=== PATIENT | male | born 1965 | race Two or more races ===

== ENCOUNTER 2017-10-12 05:07 | Inpatient (IN) | payer OTHER ==
[~2017-10-12] VITALS: Ht 165.1 cm; Wt 96.6 kg
[2017-10-12] MEDS ORDERED: CELECOXIB 100 MG CAPSULE ONE (05:28)
[2017-10-12] MEDS ORDERED: oxyCODONE HCL SR 10MG TAB.SR.12H PO ONE (05:28)
[2017-10-12] MEDS ORDERED: ACETAMINOPHEN 325 MG TABLET ONE (05:28)
[2017-10-12] MEDS ORDERED: CEFAZOLIN SODIUM/DEXTROSE,ISO 50 ML IV ONE (05:29)
[2017-10-12] MEDS ORDERED: MORPHINE SULFATE/PF 10 MG/10ML (1MG/ML) AMPUL ONE (08:32)
[2017-10-12] MEDS ORDERED: BUPIVACAINE 0.75% DEXT-PF 2 ML AMPUL ONE (08:32)
[2017-10-12] MEDS ORDERED: MIDAZOLAM HCL 2 MG/2ML VIAL ONE (08:33)
[2017-10-12] MEDS ORDERED: FENTANYL PF 100MCG/2ML AMPUL ONE ×2 (08:33→11:15)
[2017-10-12] MEDS ORDERED: KETOROLAC TROMETHAMINE INJ 30 MG/ML VIAL ONE (08:50)
[2017-10-12] MEDS ORDERED: BUPIVACAINE 0.25% 75 MG/30 ML VIAL ONE (08:50)
[2017-10-12] MEDS ORDERED: BACITRACIN 50000 UNITS/VIAL ONE (08:51)
[2017-10-12] MEDS ORDERED: TRANEXAMIC ACID 3,000 MG in SODIUM CHLORIDE IRRIG SOLUTION 70 ML IR ONE (09:30)
[2017-10-12 12:00] VITALS: BP 125/86
--- NOTE | 2017-10-12 12:00 | NUR ---
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 Donis. Patient is on 02 @2lpm via NC and tolerated well. Awake and alert, verbally responsive and able to make needs known. Foster in placed attached to drainage bag, with no sediment noted, in the bag and tubing. Vital signs checked and recorded. skin intact, left knee dressing intact, MD to do the first dressing after 48 hrs after procedure. Son at bedside. Informed Dr. Wagner about the admission and made aware. Kept patient clean and comfortable in bed, call light with in patient reach, will continue to monitor accordingly.
[2017-10-12] MEDS ORDERED: ZOLPIDEM TARTRATE 5 MG TABLET PO PRN (12:30)
[2017-10-12] MEDS ORDERED: Z GUARD REMEDY 2 OZ OINT TP PRN (12:30)
[2017-10-12] MEDS ORDERED: ACETAMINOPHEN 325 MG TABLET PO PRN (12:30)
[2017-10-12] MEDS ORDERED: MAG HYDROX/AL HYDROX/SIMETH 30 ML UDC PO PRN ×2 (12:30→13:30)
[2017-10-12] MEDS ORDERED: MAGNESIUM HYDROXIDE 30 ML UDC PO PRN ×2 (12:30→13:30)
[2017-10-12] MEDS ORDERED: ONDANSETRON HCL/PF 4 MG/2 ML VIAL IVP PRN ×2 (12:30→13:30)
[2017-10-12] MEDS ORDERED: ENOXAPARIN SODIUM 40 MG/0.4 ML DISP.SYRIN SQ SCH (12:30)
[2017-10-12] MEDS ORDERED: HYDROCODONE/APAP 5/325MG 1 EACH TABLET PO PRN (12:30)
[2017-10-12] MEDS ORDERED: SENOKOT 8.6 MG TABLET PO PRN (13:13)
[2017-10-12] MEDS ORDERED: TYLENOL 650 MG TABLET PO PRN (13:13)
[2017-10-12] MEDS ORDERED: AMBIEN 5 MG TABLET PO PRN (13:13)
[2017-10-12] MEDS ORDERED: diphenhydrAMINE HCL 25 MG CAPSULE PO PRN (13:21)
[2017-10-12] MEDS: HYDROCODONE/APAP 10/325MG 1 EA TABLET PO PRN ×3 (13:29→22:04)
[2017-10-12] MEDS ORDERED: BISACODYL SUPP (10 MG) 10 MG/SUPP.RECT SUPP.RECT RC PRN (13:30)
[2017-10-12] MEDS ORDERED: NALOXONE HCL 0.4 MG/ML AMPUL IV PRN ×2 (13:30)
[2017-10-12] MEDS ORDERED: diphenhydrAMINE HCL 50 MG/ML VIAL IV PRN (13:30)
[2017-10-12] MEDS ORDERED: CLONIDINE HCL 0.1 MG TABLET PO PRN (13:30)
[2017-10-12] MEDS ORDERED: MENTHOL/CETYLPYRD (CEPACOL) 1 LOZ LOZENGE MM PRN (13:30)
[2017-10-12] MEDS: IV D5/0.45 NACL 1,000 ML IV PRN (13:37)
[2017-10-12] MEDS: MORPHINE SULFATE INJ 4 MG/ML DISP.SYRIN IM PRN (15:02)
[2017-10-12] MEDS: ANCEF 1 G in IV D5W 50 ML IV SCH (16:50)
[2017-10-12] MEDS: DOCUSATE SODIUM 100 MG CAPSULE PO SCH (16:50)
[2017-10-12] MEDS: ASPIRIN 325 MG TABLET PO SCH (16:50)
--- NOTE | 2017-10-12 19:05 | NUR ---
ms rn closing notes All needs provided, attended, and anticipated, patient is in stable condition. Endorsed to next shift RN to continue care. Call light with in patient reach.
--- NOTE | 2017-10-12 19:52 | NUR ---
MS RN Opening Notes Received pt sitting upright. Awake and responsive. Respirations are even and unlabored, not in any acute distress noted. Denies any pain, SOB, N/V. IV site intact, no infiltration noted. Dressing kept clean and dry. Safety measures are in place. Instructed pt to use call light when assistance is needed, call light is left within reach.
[2017-10-12 20:00] VITALS: BP 119/75
[2017-10-12 20:03] VITALS: BP 119/75
[2017-10-12] MEDS: PANTOPRAZOLE 40 MG TABLET.DR PO SCH (21:59)
[2017-10-13] MEDS: ANCEF 1 G in IV D5W 50 ML IV SCH (00:01)
[2017-10-13] MEDS: IV D5/0.45 NACL 1,000 ML IV PRN (00:01)
--- NOTE | 2017-10-13 06:22 | NUR ---
MS RN CLOSING NOTES ALL DUE MEDS GIVEN, NEEDS MET AND RENDERED. AWAKE AND RESPONSIVE, AFEBRILE. RESPIRATIONS ARE EVEN AND UNLABORED, NOT IN ANY ACUTE DISTRESS NOTED. DENIES ANY PAIN AT THIS TIME, NO C/O SOB, N/V. IV SITE INTACT, NO INFILTRATION NOTED. DRESSING KEPT CLEAN AND DRY. SAFETY MEASURES ARE IN PLACE. REMINDED PT TO USE CALL LIGHT WHEN ASSISTANCE IS NEEDED, CALL LIGHT IS LEFT WITHIN REACH. WILL ENDORSE TO NEXT SHIFT FOR CONTINUITY OF CARE.
[2017-10-13] MEDS: MORPHINE SULFATE INJ 4 MG/ML DISP.SYRIN IM PRN ×3 (06:40→18:19)
[2017-10-13 07:07] LABS: CALCIUM, SERUM 8.5 mg/dL (8.5-10.1); CREATININE 0.8 mg/dL (0.6-1.3); MAGNESIUM 2.1 mg/dL (1.8-2.4); PHOSPHORUS 3.6 mg/dL (2.5-4.9)
--- NOTE | 2017-10-13 07:15 | NUR ---
ms rn initial notes Received patient in bed, awake, head of bed elevated, no SOB or distress noted, on 02 @2lpm via nc, with 02 sat of 99%. IV intact and patent with IVF infusing well. CPM machine on and tolerated well. Foster in placed attached to drainage bag with no sediment noted. Pain medication just given by truckload checker RN. Call light with in patient reach, will continue to monitor accordingly.
[2017-10-13 07:34] LABS: HEMATOCRIT 35 % (39-51); LYMPHOCYTES # (AUTO) 1.1 /CMM (0.8-4.8); MEAN CORPUSCULAR HGB CONC 34 g/dl (31.0-36.0); MEAN CORPUSCULAR VOLUME 92 fL (80-96); MONOCYTES % (AUTO) 8.1 % (2.0-12.0); NEUTROPHILS # (AUTO) 10.2 /CMM (1.8-8.9); NEUTROPHILS % (AUTO) 82.9 % (43.0-81.0); PLATELET COUNT (AUTO) 280 /CMM (150-450); RDW COEFFICIENT OF VARIATION 13.6 (11.5-15.0); RED BLOOD CELL COUNT(AUTO) 3.82 MIL/uL (4.5-6.0); WHITE BLOOD COUNT (AUTO) 12.3 K/uL (4.3-11.0)
[2017-10-13 08:00] VITALS: BP 114/79
[2017-10-13] MEDS: DOCUSATE SODIUM 100 MG CAPSULE PO SCH ×2 (08:22→16:17)
[2017-10-13] MEDS: ASPIRIN 325 MG TABLET PO SCH ×2 (08:22→16:17)
[2017-10-13] MEDS: HYDROCODONE/APAP 10/325MG 1 EA TABLET PO PRN ×3 (09:46→20:08)
[2017-10-13 16:00] VITALS: BP 124/72
--- NOTE | 2017-10-13 19:32 | NUR ---
MS RN OPENING NOTES: RECEIVED PT ON ROOM AIR AND IS TOLERATING WELL. PT IS AWAKE AND IS SITTING UP IN BED. PT A/OX4. PT HAS IV ON R HAND 18G AND IS PATENT AND INTACT. CALL LIGHT WITHIN PT'S REACH. BED KEPT IN LOW, LOCKED POSITION, AND SIDE RAILS X 2UP. WILL CONTINUE TO MONITOR PT.
--- NOTE | 2017-10-13 19:57 | NUR ---
MS RN NOTES: DR. MONTGOMERY AT BEDSIDE.
[2017-10-13 20:00] VITALS: BP 130/86
[2017-10-13] MEDS: PANTOPRAZOLE 40 MG TABLET.DR PO SCH (21:11)
[2017-10-14 03:07] VITALS: BP 132/75
[2017-10-14] MEDS: HYDROCODONE/APAP 10/325MG 1 EA TABLET PO PRN ×3 (03:09→10:02)
[2017-10-14 07:23] LABS: BASOPHILS % (AUTO) 0.3 % (0.0-2.0); EOSINOPHILS % (AUTO) 0.4 % (0.0-6.0); HEMATOCRIT 34 % (39-51); HEMOGLOBIN 11.6 g/dL (13.5-17.5); LYMPHOCYTES # (AUTO) 2.4 /CMM (0.8-4.8); LYMPHOCYTES % (AUTO) 17.5 % (20.0-44.0); MEAN CORPUSCULAR HGB CONC 35 g/dl (31.0-36.0); MEAN CORPUSCULAR VOLUME 92 fL (80-96); MONOCYTES # (AUTO) 1.3 /CMM (0.1-1.30); NEUTROPHILS # (AUTO) 10.1 /CMM (1.8-8.9); NEUTROPHILS % (AUTO) 72.8 % (43.0-81.0); PLATELET COUNT (AUTO) 299 /CMM (150-450); RDW COEFFICIENT OF VARIATION 13.7 (11.5-15.0); RED BLOOD CELL COUNT(AUTO) 3.64 MIL/uL (4.5-6.0); WHITE BLOOD COUNT (AUTO) 13.8 K/uL (4.3-11.0)
--- NOTE | 2017-10-14 07:35 | NUR ---
MS RN OPENING NOTE PATIENT IS ALERT AND ORIENTED x4. RESTING COMFORTABLY IN BED AT THIS TIME. NO PAIN NOTED. NO SOB OR DISTRESS NOTED. ON ROOM AIR TOLERATING WELL AT 98%. ABLE TO COMMUNICATE NEEDS. AMBULATORY WITH WALKER AND ASSISTANCE. HAS LEFT KNEE SURGICAL DRESSING IN PLACE AT THIS TIME, TO BE CHANGED BY MD. IV INTACT AND PATENT NO REDNESS OR SWELLING NOTED. JODIE LIGHT WITHIN REACH. SAFETY MEASURES IMPLEMENTED. WILL CONTINUE TO MONITOR
--- NOTE | 2017-10-14 07:43 | NUR ---
MS RN CLOSING NOTES: ALL NEEDS WERE ATTENDED AND ANTICIPATED FOR. PT ASLEEP AT THIS TIME. IV REMAINS INTACT. WALKER AT BEDSIDE. CALL LIGHT WITHIN PT'S REACH. BED KEPT IN LOW, LOCKED POSITION, AND SIDE RAILS X 2UP. ENDORSED TO AM NURSE FOR EMMANUELLE.
[2017-10-14 08:00] VITALS: BP 123/73
[2017-10-14 08:09] LABS: CALCIUM, SERUM 8.2 mg/dL (8.5-10.1); CREATININE 0.8 mg/dL (0.6-1.3); MAGNESIUM 1.8 mg/dL (1.8-2.4); PHOSPHORUS 2.9 mg/dL (2.5-4.9); POTASSIUM 4.2 mmol/L (3.5-5.1)
[2017-10-14] MEDS: DOCUSATE SODIUM 100 MG CAPSULE PO SCH (08:20)
[2017-10-14] MEDS: ASPIRIN 325 MG TABLET PO SCH (08:20)
--- NOTE | 2017-10-14 10:18 | NUR ---
MS RN NOTE PATIENT REQUESTED PAIN MEDICATION PRIOR TO PHYSICAL THERAPY. LEFT KNEE PAIN 8/10, NORCO 10/325 GIVEN. WILL MONITOR PATIENT ASSESSMENT
[2017-10-14] MEDS ORDERED: PANT40TA2 PO (12:02)
[2017-10-14] MEDS ORDERED: ASPI-992 PO (12:02)
[2017-10-14] MEDS ORDERED: SENN-167 PO (12:02)
[2017-10-14] MEDS ORDERED: Hydrocodone/Apap 10/325MG PO (12:02)
--- NOTE | 2017-10-14 16:13 | NUR ---
MS TOOL TROUBLE SHOOTER NOTE PATIENT IS ALERT AND ORIENTED X4. DISCHARGED IN STABLE CONDITION. GAVE REPORT TO MARCO TERRAZAS AT [facility]. ALL MEDICATIONS GIVEN ORDERED. ALL NURSING CARE NEEDS ATTENDED TO. WOUND DRESSING CHANGED PER PATIENT REQUESTED BUT REFUSED WOUND PICTURE DOCUMENTATION. ALL DISCHARGE INSTRUCTIONS GIVEN TO PATIENT AT BEDSIDE AND TO RN AT [facility]. ALL BELONGINGS ACCOUNTED FOR AT DISCHARGE. IV REMOVED, SKIN INTACT. LEFT VIA AMBULANCE.
== END 2017-10-14 16:19 | DRG 470 ==
LOC: DS 05:07 → MED 12:15
PROVIDERS: ADMIT Specialist; ATTEND Specialist
PROC: 0SRD0J9 Replacement of Left Knee Joint with Synthetic Substitute, Cemented, Open Approach (ICD-10-PCS; principal; 2017-10-12 08:55)
DX: M17.12 Unilateral primary osteoarthritis, left knee (principal); D63.8 Anemia in other chronic diseases classified elsewhere; E66.9 Obesity, unspecified; Z87.891 Personal history of nicotine dependence; Z68.35 Body mass index [BMI] 35.0-35.9, adult; D72.829 Elevated white blood cell count, unspecified; E78.5 Hyperlipidemia, unspecified; K21.9 Gastro-esophageal reflux disease without esophagitis
CPT/HCPCS: 36415; 80048-TC; 82962-TC; 83735-TC; 84100-TC; 85025-TC; 86850-TC; 86921-TC; 87081-TC; 88305-TC; 88311-TC; 97110-TC; 97116-TC; 97530-TC; 97760-TC; A4217; A4606; A6402; A6403; C1713; J0690; J1100; J1885; J2250; J2270; J2274; J2405; J2704; J3010; J3490; J7030; J7060; L1830; Z7610